=== PATIENT | female | born 1930 | race Hispanic/Latino ===

== ENCOUNTER 2018-02-24 16:47 | Emergency (ER) | payer MEDICARE, OTHER ==
[~2018-02-24] VITALS: Ht 149.9 cm; Wt 53.5 kg
[~2018-02-24 16:47] MED LIST: BACLOFEN10 MG PO; DIOVAN; TYLENOL WITH C1 EACH PO; ULTRAM50 MG; VICODIN 5-5001 EACH
[2018-02-24] MEDS ORDERED: DIAZEPAM 2 MG TAB PO ONE (18:00)
--- NOTE | 2018-02-24 18:19 | Diagnostic Imaging Report ---
EXAMINATION: CHEST 2 VIEWS 02/24/2018 5:47 PM COMPARISON: None INDICATION: DISCUSSION: LINES: None. LUNGS: The lungs are well inflated and clear. No pneumonia or pulmonary edema. PLEURA: No pleural effusion or pneumothorax. HEART AND MEDIASTINUM: Normal heart size. Atherosclerosis of the thoracic aorta. BONES AND SOFT TISSUES: No acute osseous lesion. Spondylosis of the thoracic spine. IMPRESSION: No acute cardiopulmonary disease. Giles Meehan MD Signed by: Dr. Giles Meehan M.D. on 02/24/2018 6:16 PM
[2018-02-24 19:25] VITALS: BP 159/67
== END 2018-02-24 20:11 | disposition home or self-care (01) ==
LOC: ER 16:47
DX: M54.6 Pain in thoracic spine (principal); M54.2 Cervicalgia; M62.838 Other muscle spasm; M62.830 Muscle spasm of back; I10 Essential (primary) hypertension
CPT/HCPCS: 71046; 93005; 99283

== ENCOUNTER → 2019-05-02 | Outpatient (RCR) | payer MEDICARE ==
[~2019-05-02] MED LIST changes: +LOSARTAN POTAS100 MG PO; +NAPROXEN250 MG PO; +SOMA350 MG PO
== END ==
LOC: PT 04-19 10:31
PROVIDERS: ATTEND Internal Medicine
DX: M54.42 Lumbago with sciatica, left side (principal); M54.41 Lumbago with sciatica, right side; M53.86 Other specified dorsopathies, lumbar region; M54.6 Pain in thoracic spine; M62.81 Muscle weakness (generalized); R26.2 Difficulty in walking, not elsewhere classified

== ENCOUNTER 2019-05-17 14:00 | Outpatient (RCR) | payer MEDICARE | END 2019-06-01 | LOC: PT 14:00 | PROVIDERS: ATTEND Internal Medicine | DX: M54.40 Lumbago with sciatica, unspecified side (principal); M54.6 Pain in thoracic spine; M62.81 Muscle weakness (generalized); R26.2 Difficulty in walking, not elsewhere classified ==

== ENCOUNTER 2020-05-26 08:51 | Outpatient (RCR) | payer MEDICARE | END 2020-06-01 | LOC: PT 08:51 | PROVIDERS: ATTEND Internal Medicine | DX: M54.42 Lumbago with sciatica, left side (principal); M54.41 Lumbago with sciatica, right side; M62.81 Muscle weakness (generalized); R26.2 Difficulty in walking, not elsewhere classified; M53.86 Other specified dorsopathies, lumbar region ==

== ENCOUNTER 2020-06-19 15:00 | Outpatient (RCR) | payer MEDICARE | END 2020-07-02 | LOC: PT 15:00 | PROVIDERS: ATTEND Internal Medicine | DX: M54.5 Low back pain (principal); M54.6 Pain in thoracic spine; M54.2 Cervicalgia; M53.80 Other specified dorsopathies, site unspecified ==